=== PATIENT | female | born 1940 ===

== ENCOUNTER 2018-07-05 00:29 | Day surgery (SDC) | payer MEDICARE, OTHER ==
[~2018-07-05 00:29] MED LIST: ABAT250V; ASPI81CH; CARV6.25; CYAFAPYR; FAMO20; FURO20; LOSA25; LOVA40; METTREX2.5; NAPR500EC
== END 2018-07-05 09:45 | disposition home or self-care (01) ==
LOC: ATC 00:29
DX: M05.79 Rheumatoid arthritis with rheumatoid factor of multiple sites without organ or systems involvement (principal)
CPT/HCPCS: 96365; J0129

== ENCOUNTER 2018-08-05 00:30 | Day surgery (SDC) | payer MEDICARE, OTHER ==
--- NOTE | 2018-08-05 08:55 | NUR ---
PT DECLINES PRE MEDS.
== END 2018-08-05 09:24 | disposition home or self-care (01) ==
LOC: ATC 00:30
DX: M05.79 Rheumatoid arthritis with rheumatoid factor of multiple sites without organ or systems involvement (principal); Z79.899 Other long term (current) drug therapy; Z87.891 Personal history of nicotine dependence
CPT/HCPCS: 96365; J0129

== ENCOUNTER 2018-09-02 00:20 | Day surgery (SDC) | payer MEDICARE, OTHER ==
[2018-09-02] MEDS ORDERED: ABAT250V IV (09:19)
--- NOTE | 2018-09-02 11:29 | NUR ---
PT REPORTS SHE DOESNT NEED THE PREMEDS.
== END 2018-09-02 10:50 | disposition home or self-care (01) ==
LOC: ATC 00:20
DX: M05.79 Rheumatoid arthritis with rheumatoid factor of multiple sites without organ or systems involvement (principal); Z87.891 Personal history of nicotine dependence
CPT/HCPCS: J0129

== ENCOUNTER 2018-10-04 07:45 | Day surgery (SDC) | payer MEDICARE, OTHER ==
[~2018-10-04 07:45] MED LIST changes: +ABAT250V IV
--- NOTE | 2018-10-04 08:47 | NUR ---
PT REPORTS SHE DOES NOT TAKE PREMEDS
== END 2018-10-04 09:04 | disposition home or self-care (01) ==
LOC: ATC 07:45
DX: M05.79 Rheumatoid arthritis with rheumatoid factor of multiple sites without organ or systems involvement (principal); Z79.899 Other long term (current) drug therapy; Z79.82 Long term (current) use of aspirin; Z88.5 Allergy status to narcotic agent; Z88.8 Allergy status to other drugs, medicaments and biological substances; Z87.891 Personal history of nicotine dependence; Z96.653 Presence of artificial knee joint, bilateral
CPT/HCPCS: 96365; J0129

== ENCOUNTER → 2019-03-31 | Outpatient (CLI) | payer MEDICARE, OTHER | END | disposition home or self-care (01) | LOC: PLD 10:23 → LAB SHORT 10:23 | DX: L57.0 Actinic keratosis (principal); L30.9 Dermatitis, unspecified | CPT/HCPCS: 88305; 88312 ==